=== PATIENT | male | born 1995 | race Hispanic/Latino ===

== ENCOUNTER 2019-05-17 13:51 | Emergency (ER) | payer OTHER, SELFPAY ==
[2019-05-17 14:10] LABS: #Basophils 0.1 thou/uL (0.0-0.2); #Eosinphils 0.1 thou/uL (0.0-0.7); #Lymphocytes 3.1 thou/uL (1.20-3.40); #Monocytes 0.6 thou/uL (0.11-0.59); #Neutrophils 3.3 thou/uL (1.40-6.50); %Eosinophils 1.6 % (0.0-10.0); %Lymphocytes 43.3 % (21.0-51.0); %Neutrophils 46.2 % (42.0-75.0); Hemoglobin 16.4 g/dL (14.0-18.0); Mean Corpuscular HGB CONC 33.9 g/dL (32.0-36.0); Mean Corpuscular Hemoglobin 29.3 pg (27.0-31.0); Mean Corpuscular Volume 86.4 fL (78.0-98.0); Mean Platelet Volume 7.3 fL (7.4-10.4); Platelet Count 306 thou/uL (130-400); RBC Distribution Width 11.2 % (11.5-14.5); Red Blood Cell (RBC) Count 5.59 mill/uL (4.70-6.10); White Blood Cell (WBC) Count 7.1 thou/uL (4.8-10.8)
[2019-05-17] MEDS ORDERED: Lidocaine 1% w/Epinephrine 1:100K 30 ML VIAL ONE (15:15)
== END 2019-05-17 15:53 | disposition home or self-care (01) ==
LOC: NAV ERS 13:51
DX: S01.81XA Laceration without foreign body of other part of head, initial encounter (principal); X99.1XXA Assault by knife, initial encounter
CPT/HCPCS: 12011; 85025; J2001

== ENCOUNTER 2019-05-22 16:14 | Emergency (ER) | payer SELFPAY | END 2019-05-22 16:50 | disposition home or self-care (01) | LOC: NAV ERS 16:14 | DX: S01.81XD Laceration without foreign body of other part of head, subsequent encounter (principal); X99.1XXD Assault by knife, subsequent encounter ==